=== PATIENT | female | born 1950 | race Caucasian/White ===

== ENCOUNTER → 2024-03-14 09:43 | Outpatient (REF) | payer MEDICARE, OTHER, SELFPAY | LOC: WDC 09:43 | PROVIDERS: ATTENDING PHYSICIAN Obstetrics & Gynecology; FAMILY PHYSICIAN Family Medicine | DX: N63.11 Unspecified lump in the right breast, upper outer quadrant (principal) | CPT/HCPCS: 76642; 77062; 77066 ==

== ENCOUNTER → 2024-03-18 08:25 | Outpatient (REF) | payer MEDICARE, OTHER, SELFPAY | LOC: WDC 08:25 | PROVIDERS: ATTENDING PHYSICIAN Obstetrics & Gynecology | DX: N63.11 Unspecified lump in the right breast, upper outer quadrant (principal) | CPT/HCPCS: 88305; 19083; A4648 ==

== ENCOUNTER → 2024-04-01 09:37 | Outpatient (REF) | payer MEDICARE, OTHER, SELFPAY | LOC: MRI 3T 09:37 | PROVIDERS: ATTENDING PHYSICIAN Surgery; FAMILY PHYSICIAN Family Medicine; OTHER PHYSICIAN Obstetrics & Gynecology | DX: C50.411 Malignant neoplasm of upper-outer quadrant of right female breast (principal); Z17.1 Estrogen receptor negative status [ER-] | CPT/HCPCS: 71260; 74177; 77049; 78306; A9503; A9585; Q9967 ==

== ENCOUNTER → 2024-04-22 08:09 | Outpatient (REF) | payer MEDICARE, OTHER, SELFPAY ==
[2024-04-21 09:22] VITALS: BMI 24.4
[2024-04-22 08:50] VITALS: BP 168/84; BP_SYST 77
[2024-04-22] MEDS: ANCEF 10 IV (09:28)
[2024-04-22 10:32] VITALS: BP 116/84
== END ==
LOC: RADI 08:09
PROVIDERS: ATTENDING PHYSICIAN Internal Medicine Hematology & Oncology; FAMILY PHYSICIAN Family Medicine
DX: C50.411 Malignant neoplasm of upper-outer quadrant of right female breast (principal)
CPT/HCPCS: 36561; 76937; 77001; 99152; 99153; C1788

== ENCOUNTER → 2024-06-08 13:15 | Outpatient (REF) | payer MEDICARE, OTHER, SELFPAY ==
[2024-06-08 13:35] LABS: % Basophils 0.2 % (0-2); % Eosinophils 0.3 % (0-6); % Immature Granulocytes 10.9 % (0-0.5); % Lymphocytes 12.3 % (20.5-51.1); % Monocytes 3.3 % (1.7-9.3); Absolute Immature Granulocytes 1.4 10^3/uL (0-0.05); Absolute Lymphocytes 1.6 10^3/uL (1.2-3.4); Absolute Monocytes 0.4 10^3/uL (0.1-0.6); Absolute Neutrophils 9.3 10^3/uL (1.4-6.5); Hematocrit 31.7 % (37.0-47.0); Hemoglobin 10.8 g/dL (12.0-16.0); Mean Corp Hgb Conc. 34.1 g/dL (33.0-37.0); Mean Corpuscular Hgb 29.6 pg (27.0-31.0); Mean Corpuscular Volume 86.8 fL (81.0-99.0); Mean Platelet Volume 9.8 fL (7.4-10.4); Platelet Count 168 10^3/uL (130-400); Red Blood Cell Count 3.65 10^6/uL (4.20-5.40); Red Cell Dist. Width 14.6 % (11.5-14.5); White Blood Cell Count 12.7 10^3/uL (4.8-10.8)
[2024-06-08 15:35] LABS: ALT (SGPT) 25 U/L (0-35); AST (SGOT) 28 U/L (14-36); Alkaline Phosphatase 72 U/L (38-126); Blood Urea Nitrogen 13 mg/dl (7-17); Calcium 8.9 mg/dl (8.4-10.2); Carbon Dioxide 27 mmol/L (22-30); Chloride 101 mmol/L (98-107); Glucose 106 mg/dl (70-99); Potassium 3.4 mmol/L (3.5-5.1); Sodium 139 mmol/L (135-145); Total Bilirubin 0.7 mg/dl (0.2-1.3); Total Protein 6.2 g/dl (6.3-8.2); eGFR > 60.00
[2024-06-08 16:19] LABS: Free T4 1.35 ng/dl (0.78-2.19)
[2024-06-08 16:33] LABS: TSH 2.36 uIU/ml (0.47-4.68)
[2024-06-10 23:07] LABS: Total T3 (Sendout) 129 ng/dL (80-200)
== END ==
LOC: OIDL 13:15
PROVIDERS: ATTENDING PHYSICIAN Internal Medicine Hematology & Oncology
DX: C50.411 Malignant neoplasm of upper-outer quadrant of right female breast (principal); R53.82 Chronic fatigue, unspecified
CPT/HCPCS: 80053; 84439; 84443; 84480; 85025

== ENCOUNTER → 2024-06-15 12:15 | Outpatient (REF) | payer MEDICARE, OTHER, SELFPAY ==
[2024-06-15 10:06] LABS: % Basophils 1.1 % (0-2); % Immature Granulocytes 1.1 % (0-0.5); % Lymphocytes 77.2 % (20.5-51.1); % Monocytes 3.3 % (1.7-9.3); % Neutrophils 17.3 % (42.2-75.2); Absolute Lymphocytes 0.7 10^3/uL (1.2-3.4); Hematocrit 29.2 % (37.0-47.0); Hemoglobin 9.7 g/dL (12.0-16.0); Mean Corp Hgb Conc. 33.2 g/dL (33.0-37.0); Mean Corpuscular Hgb 29.5 pg (27.0-31.0); Mean Corpuscular Volume 88.8 fL (81.0-99.0); Mean Platelet Volume 10.4 fL (7.4-10.4); Platelet Count 164 10^3/uL (130-400); Red Blood Cell Count 3.29 10^6/uL (4.20-5.40); Red Cell Dist. Width 14.4 % (11.5-14.5)
[2024-06-15 10:07] LABS: White Blood Cell Count 0.9 10^3/uL (4.8-10.8)
[2024-06-15 10:08] LABS: Absolute Neutrophils 0.2 10^3/uL (1.4-6.5)
[2024-06-15 10:43] LABS: ALT (SGPT) 25 U/L (0-35); AST (SGOT) 27 U/L (14-36); Albumin 4.3 g/dl (3.5-5.0); Alkaline Phosphatase 64 U/L (38-126); Blood Urea Nitrogen 12 mg/dl (7-17); Calcium 9.3 mg/dl (8.4-10.2); Carbon Dioxide 28 mmol/L (22-30); Chloride 97 mmol/L (98-107); Glucose 100 mg/dl (70-99); Potassium 3.5 mmol/L (3.5-5.1); Sodium 136 mmol/L (135-145); Total Bilirubin 1.4 mg/dl (0.2-1.3); Total Protein 6.2 g/dl (6.3-8.2); eGFR > 60.00
== END ==
LOC: OIDL 12:15
PROVIDERS: ATTENDING PHYSICIAN Internal Medicine Hematology & Oncology
DX: C50.411 Malignant neoplasm of upper-outer quadrant of right female breast (principal)
CPT/HCPCS: 80053; 85025

== ENCOUNTER → 2024-06-20 14:11 | Outpatient (REF) | payer MEDICARE, OTHER, SELFPAY ==
[2024-06-20 14:21] LABS: % Basophils 0.1 % (0-2); % Eosinophils 0.1 % (0-6); % Immature Granulocytes 8.9 % (0-0.5); % Lymphocytes 17.5 % (20.5-51.1); % Monocytes 14.8 % (1.7-9.3); % Neutrophils 58.6 % (42.2-75.2); Absolute Immature Granulocytes 1.3 10^3/uL (0-0.05); Absolute Lymphocytes 2.5 10^3/uL (1.2-3.4); Absolute Monocytes 2.1 10^3/uL (0.1-0.6); Absolute Neutrophils 8.3 10^3/uL (1.4-6.5); Mean Corp Hgb Conc. 32.3 g/dL (33.0-37.0); Mean Corpuscular Hgb 29.2 pg (27.0-31.0); Mean Corpuscular Volume 90.6 fL (81.0-99.0); Mean Platelet Volume 9.9 fL (7.4-10.4); Platelet Count 269 10^3/uL (130-400); Red Blood Cell Count 3.42 10^6/uL (4.20-5.40); Red Cell Dist. Width 15.7 % (11.5-14.5); White Blood Cell Count 14.1 10^3/uL (4.8-10.8)
== END ==
LOC: OIDL 14:11
PROVIDERS: ATTENDING PHYSICIAN Nurse Practitioner Primary Care
DX: C50.411 Malignant neoplasm of upper-outer quadrant of right female breast (principal)
CPT/HCPCS: 85025

== ENCOUNTER → 2024-06-21 16:08 | Outpatient (REF) | payer MEDICARE, OTHER, SELFPAY ==
[2024-06-21 14:45] LABS: % Basophils 0.2 % (0-2); % Eosinophils 0.1 % (0-6); % Immature Granulocytes 4.8 % (0-0.5); % Lymphocytes 9.2 % (20.5-51.1); % Monocytes 8.9 % (1.7-9.3); % Neutrophils 76.8 % (42.2-75.2); Absolute Basophils 0.1 10^3/uL (0-0.2); Absolute Immature Granulocytes 1.8 10^3/uL (0-0.05); Absolute Lymphocytes 3.5 10^3/uL (1.2-3.4); Absolute Monocytes 3.4 10^3/uL (0.1-0.6); Absolute Neutrophils 29.3 10^3/uL (1.4-6.5); Hemoglobin 10.3 g/dL (12.0-16.0); Mean Corp Hgb Conc. 32.2 g/dL (33.0-37.0); Mean Corpuscular Hgb 29.2 pg (27.0-31.0); Mean Corpuscular Volume 90.7 fL (81.0-99.0); Platelet Count 292 10^3/uL (130-400); Red Blood Cell Count 3.53 10^6/uL (4.20-5.40)
[2024-06-21 14:50] LABS: White Blood Cell Count 38.1 10^3/uL (4.8-10.8)
[2024-06-21 16:07] LABS: ALT (SGPT) 25 U/L (0-35); AST (SGOT) 43 U/L (14-36); Albumin 4.6 g/dl (3.5-5.0); Alkaline Phosphatase 139 U/L (38-126); Blood Urea Nitrogen 5 mg/dl (7-17); Calcium 9.2 mg/dl (8.4-10.2); Carbon Dioxide 28 mmol/L (22-30); Chloride 101 mmol/L (98-107); Glucose 87 mg/dl (70-99); Potassium 3.1 mmol/L (3.5-5.1); Sodium 142 mmol/L (135-145); Total Bilirubin 0.7 mg/dl (0.2-1.3); Total Protein 6.7 g/dl (6.3-8.2); eGFR > 60.00
== END ==
LOC: OIDL 16:08
PROVIDERS: ATTENDING PHYSICIAN Internal Medicine Hematology & Oncology
DX: C50.411 Malignant neoplasm of upper-outer quadrant of right female breast (principal)
CPT/HCPCS: 80053; 85025

== ENCOUNTER → 2024-07-05 16:20 | Outpatient (REF) | payer MEDICARE, OTHER, SELFPAY ==
[2024-07-05 14:29] LABS: % Basophils 0.3 % (0-2); % Eosinophils 0.2 % (0-6); % Immature Granulocytes 8.8 % (0-0.5); % Lymphocytes 18.3 % (20.5-51.1); % Monocytes 1.7 % (1.7-9.3); % Neutrophils 70.7 % (42.2-75.2); Absolute Immature Granulocytes 0.6 10^3/uL (0-0.05); Absolute Lymphocytes 1.2 10^3/uL (1.2-3.4); Absolute Monocytes 0.1 10^3/uL (0.1-0.6); Absolute Neutrophils 4.5 10^3/uL (1.4-6.5); Hematocrit 28.3 % (37.0-47.0); Hemoglobin 9.2 g/dL (12.0-16.0); Mean Corp Hgb Conc. 32.5 g/dL (33.0-37.0); Mean Corpuscular Hgb 29.5 pg (27.0-31.0); Mean Corpuscular Volume 90.7 fL (81.0-99.0); Mean Platelet Volume 10.9 fL (7.4-10.4); Platelet Count 214 10^3/uL (130-400); Red Blood Cell Count 3.12 10^6/uL (4.20-5.40); Red Cell Dist. Width 16.5 % (11.5-14.5); White Blood Cell Count 6.3 10^3/uL (4.8-10.8)
[2024-07-05 16:03] LABS: ALT (SGPT) 21 U/L (0-35); AST (SGOT) 26 U/L (14-36); Albumin 4.3 g/dl (3.5-5.0); Alkaline Phosphatase 93 U/L (38-126); Blood Urea Nitrogen 14 mg/dl (7-17); Calcium 9.5 mg/dl (8.4-10.2); Carbon Dioxide 26 mmol/L (22-30); Chloride 98 mmol/L (98-107); Glucose 116 mg/dl (70-99); Potassium 3.6 mmol/L (3.5-5.1); Sodium 137 mmol/L (135-145); Total Protein 6.2 g/dl (6.3-8.2); eGFR > 60.00
== END ==
LOC: OIDL 16:20
PROVIDERS: ATTENDING PHYSICIAN Internal Medicine Hematology & Oncology
DX: C50.411 Malignant neoplasm of upper-outer quadrant of right female breast (principal)
CPT/HCPCS: 80053; 85025

== ENCOUNTER → 2024-07-12 16:32 | Outpatient (REF) | payer MEDICARE, OTHER, SELFPAY ==
[2024-07-12 15:13] LABS: % Basophils 0.2 % (0-2); % Eosinophils 0.1 % (0-6); % Immature Granulocytes 6.9 % (0-0.5); % Lymphocytes 15.7 % (20.5-51.1); % Monocytes 2.6 % (1.7-9.3); % Neutrophils 74.5 % (42.2-75.2); Absolute Immature Granulocytes 0.7 10^3/uL (0-0.05); Absolute Lymphocytes 1.7 10^3/uL (1.2-3.4); Absolute Monocytes 0.3 10^3/uL (0.1-0.6); Absolute Neutrophils 8.1 10^3/uL (1.4-6.5); Hematocrit 26.2 % (37.0-47.0); Hemoglobin 8.8 g/dL (12.0-16.0); Mean Corp Hgb Conc. 33.6 g/dL (33.0-37.0); Mean Corpuscular Hgb 30.4 pg (27.0-31.0); Mean Corpuscular Volume 90.7 fL (81.0-99.0); Mean Platelet Volume 11.4 fL (7.4-10.4); Platelet Count 250 10^3/uL (130-400); Red Blood Cell Count 2.89 10^6/uL (4.20-5.40); Red Cell Dist. Width 17.4 % (11.5-14.5); White Blood Cell Count 10.8 10^3/uL (4.8-10.8)
[2024-07-12 15:53] LABS: ALT (SGPT) 19 U/L (0-35); AST (SGOT) 27 U/L (14-36); Albumin 4.3 g/dl (3.5-5.0); Alkaline Phosphatase 85 U/L (38-126); Blood Urea Nitrogen 11 mg/dl (7-17); Calcium 9.7 mg/dl (8.4-10.2); Carbon Dioxide 29 mmol/L (22-30); Chloride 96 mmol/L (98-107); Glucose 122 mg/dl (70-99); Potassium 3.2 mmol/L (3.5-5.1); Sodium 136 mmol/L (135-145); Total Bilirubin 1.6 mg/dl (0.2-1.3); Total Protein 6.3 g/dl (6.3-8.2); eGFR > 60.00
== END ==
LOC: OIDL 16:32
PROVIDERS: ATTENDING PHYSICIAN Internal Medicine Hematology & Oncology
DX: C50.411 Malignant neoplasm of upper-outer quadrant of right female breast (principal)
CPT/HCPCS: 80053; 85025

== ENCOUNTER → 2024-07-14 14:50 | Outpatient (REF) | payer MEDICARE, OTHER, SELFPAY ==
[2024-07-14 12:39] LABS: Iron 60 ug/dl (37-170)
[2024-07-14 12:49] LABS: Percent Saturation 19 % (20-50); Total Iron Binding Capacity 301 ug/dl (265-497)
== END ==
LOC: OIDL 14:50
PROVIDERS: ATTENDING PHYSICIAN Internal Medicine Hematology & Oncology
DX: C50.411 Malignant neoplasm of upper-outer quadrant of right female breast (principal)
CPT/HCPCS: 82728; 83540; 83550

== ENCOUNTER → 2024-07-19 14:41 | Outpatient (REF) | payer MEDICARE, OTHER, SELFPAY ==
[2024-07-19 14:47] LABS: % Basophils 0.4 % (0-2); % Eosinophils 0.1 % (0-6); % Immature Granulocytes 6.4 % (0-0.5); % Lymphocytes 20.6 % (20.5-51.1); % Monocytes 2.3 % (1.7-9.3); % Neutrophils 70.2 % (42.2-75.2); Absolute Immature Granulocytes 0.5 10^3/uL (0-0.05); Absolute Lymphocytes 1.4 10^3/uL (1.2-3.4); Absolute Monocytes 0.2 10^3/uL (0.1-0.6); Absolute Neutrophils 4.9 10^3/uL (1.4-6.5); Hematocrit 23.5 % (37.0-47.0); Hemoglobin 7.8 g/dL (12.0-16.0); Mean Corp Hgb Conc. 33.2 g/dL (33.0-37.0); Mean Corpuscular Hgb 30.7 pg (27.0-31.0); Mean Corpuscular Volume 92.5 fL (81.0-99.0); Mean Platelet Volume 10.5 fL (7.4-10.4); Platelet Count 157 10^3/uL (130-400); Red Blood Cell Count 2.54 10^6/uL (4.20-5.40); Red Cell Dist. Width 17.8 % (11.5-14.5)
[2024-07-19 15:54] LABS: ALT (SGPT) 16 U/L (0-35); AST (SGOT) 25 U/L (14-36); Albumin 3.6 g/dl (3.5-5.0); Alkaline Phosphatase 73 U/L (38-126); Blood Urea Nitrogen 6 mg/dl (7-17); Carbon Dioxide 29 mmol/L (22-30); Chloride 98 mmol/L (98-107); Glucose 96 mg/dl (70-99); Sodium 134 mmol/L (135-145); Total Bilirubin 1.9 mg/dl (0.2-1.3); eGFR > 60.00
== END ==
LOC: OIDL 14:41
PROVIDERS: ATTENDING PHYSICIAN Internal Medicine Hematology & Oncology
DX: C50.411 Malignant neoplasm of upper-outer quadrant of right female breast (principal)
CPT/HCPCS: 80053; 85025

== ENCOUNTER 2024-07-21 10:56 | Outpatient (RCR) | payer MEDICARE, OTHER, SELFPAY ==
[2024-07-21 11:27] VITALS: BP 140/65
[2024-07-21] MEDS: TYLENOL 650 MG PO (11:30)
[2024-07-21 11:46] VITALS: BP 125/56
[2024-07-21 14:01] VITALS: BP 126/68
== END 2024-08-08 23:59 | disposition home or self-care (01) ==
LOC: OID 10:56
PROVIDERS: ATTENDING PHYSICIAN Nurse Practitioner Primary Care
DX: C50.411 Malignant neoplasm of upper-outer quadrant of right female breast (principal); Z17.1 Estrogen receptor negative status [ER-]
CPT/HCPCS: 36430; 86850; 86900; 86901; 86920; P9016

== ENCOUNTER → 2024-08-02 14:33 | Outpatient (REF) | payer MEDICARE, OTHER, SELFPAY | LOC: RCS 14:33 | PROVIDERS: ATTENDING PHYSICIAN Nurse Practitioner Primary Care | DX: C50.411 Malignant neoplasm of upper-outer quadrant of right female breast (principal) | CPT/HCPCS: 80053; 85025; 93306; 93356 ==

== ENCOUNTER 2024-08-09 15:06 | Outpatient (RCR) | payer MEDICARE, OTHER, SELFPAY ==
[2024-08-09 14:23] LABS: % Basophils 0.2 % (0-2); % Eosinophils 0.1 % (0-6); % Immature Granulocytes 3.8 % (0-0.5); % Lymphocytes 9.4 % (20.5-51.1); % Monocytes 1.4 % (1.7-9.3); % Neutrophils 85.1 % (42.2-75.2); Absolute Immature Granulocytes 0.7 10^3/uL (0-0.05); Absolute Lymphocytes 1.7 10^3/uL (1.2-3.4); Absolute Monocytes 0.3 10^3/uL (0.1-0.6); Absolute Neutrophils 15.4 10^3/uL (1.4-6.5); Hematocrit 30.2 % (37.0-47.0); Hemoglobin 9.9 g/dL (12.0-16.0); Mean Corp Hgb Conc. 32.8 g/dL (33.0-37.0); Mean Corpuscular Volume 91.5 fL (81.0-99.0); Mean Platelet Volume 11.3 fL (7.4-10.4); Platelet Count 190 10^3/uL (130-400); Red Cell Dist. Width 16.5 % (11.5-14.5); White Blood Cell Count 18.1 10^3/uL (4.8-10.8)
[2024-08-09 15:13] LABS: ALT (SGPT) 21 U/L (0-35); AST (SGOT) 24 U/L (14-36); Albumin 4.1 g/dl (3.5-5.0); Alkaline Phosphatase 99 U/L (38-126); Blood Urea Nitrogen 16 mg/dl (7-17); Calcium 9.2 mg/dl (8.4-10.2); Carbon Dioxide 25 mmol/L (22-30); Chloride 102 mmol/L (98-107); Glucose 111 mg/dl (70-99); Potassium 3.9 mmol/L (3.5-5.1); Sodium 138 mmol/L (135-145); Total Bilirubin 1.5 mg/dl (0.2-1.3); Total Protein 6.3 g/dl (6.3-8.2); eGFR > 60.00
== END 2024-09-07 23:59 | disposition home or self-care (01) ==
LOC: OID 15:06
PROVIDERS: ATTENDING PHYSICIAN Nurse Practitioner Primary Care
DX: C50.411 Malignant neoplasm of upper-outer quadrant of right female breast (principal); Z17.1 Estrogen receptor negative status [ER-]
CPT/HCPCS: 80053; 85025

== ENCOUNTER → 2024-11-24 08:02 | Outpatient (REF) | payer MEDICARE, OTHER, SELFPAY ==
[2024-11-24 16:19] LABS: Hemoglobin 10.2 g/dL (12.0-16.0)
== END ==
LOC: WDC 08:02
PROVIDERS: ATTENDING PHYSICIAN Surgery; FAMILY PHYSICIAN Family Medicine
DX: C50.411 Malignant neoplasm of upper-outer quadrant of right female breast (principal)
CPT/HCPCS: 19285; 36415; 38792; 76942; 85018; A4648; A9541

== ENCOUNTER 2024-11-25 06:27 | Day surgery (SDC) | payer MEDICARE, OTHER, SELFPAY ==
[2024-11-15 14:08] VITALS: BMI 20.7
--- NOTE | 2024-11-17 10:14 | PTCARENOTE ---
Patients 11/15 b 9.5- Palomo @ Dr. Schofield office notified
--- NOTE | 2024-11-17 15:07 | PTCARENOTE ---
Abnormal Hgb 9.5 collected 11/15/24, reviewed by Dr Troy and no further interventions requested.
[2024-11-25] VITALS (9 sets, daily range): BP systolic 93–128; BP diastolic 56–77; BMI 20.7
[2024-11-25] MEDS: TYLENOL 1000 MG PO (10:16)
[2024-11-25] MEDS: NORMOSOL-R/PLASMALYTE-A 1000 IV (10:18)
[2024-11-25] MEDS: LOVENOX 40 MG SC (10:50)
--- NOTE | 2024-11-25 13:15 | W.IMMPOSTOP ---
Surgical Immed Post Op Note
-
Primary Surgeon: Vj
Assisting Surgeon: None
Pre-op Diagnosis: right breast ca
Post-op Diagnosis: same
Procedure Performed: Right localized lumpectomy and sentinel lymph node mapping and biopsy
Anesthesia Type: LMA general
Specimen / Cultures: Sentinal nodes, lumpectomy, margins
Estimated Blood Loss: 10cc
Complications: None
Operative Findings: clip and reflector in specimen
--- NOTE | 2024-11-25 13:17 | OR.RPT ---
Operative Report
Operative Report
Date of surgery: Length 11/25/2024
Surgeon: Vj
Preoperative diagnosis: Right breast carcinoma
Postoperative diagnosis: Right breast carcinoma
Procedure: Right localized lumpectomy, sentinel lymph node mapping and biopsy,
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 She presents for breast conservation surgery. On the day prior to the procedure she presented to the [facility] where a Eladia reflector was placed in the image-detected residual tumor site and technetium radiotracer was injected into the breast parenchyma.
On the day of surgery she presented to the same-day surgical services unit. She verified the procedure and was prepped. DVT and antibiotic prophylaxis were provided. She was taken to the operating room and in the supine position intravenous
sedation was delivered, however, the patient had an extremely reactive airway and is a smoker this was converted to an LMA general anesthesia.
The Right breast and axilla were prepped and draped in the usual sterile fashion. An appropriate timeout was performed by all staff members. All tissues were anesthetized with 1% lidocaine plain. Attention was first turned to the axilla where a
curvilinear incision was made inferior to the hairline overlying the area of highest external gamma count. Prior to that, a milliliter of methylene blue was delivered at the tumor site and external massage was applied for 5 minutes. Dissectitof
background count and there were no visible blue nodes. Hemostasis was verified. Marcaine 0.5% plain was instilled the wound was closed using simple interrupted 3-0 plain on deep intermediate and subcutaneous tissue. Skin was closed with running
subcuticular 4 Monocryl.
Next attention was turned to the lumpectomy. A curvilinear incision was made overlying the area of highest external Eladia signal. Skin flaps were elevated and a wide lumpectomy was performed using the cautery. Time out of body was noted and the
specimen was oriented for the pathologist. There was a strong Eladia signal within it and specimen radiography computer confirmed the presence of clip and reflector within it. Additional margins were harvested from the posterior, medial, superior,
lateral, inferior, and anterior dimensions. These were oriented and sent for permanent analysis. Hemostasis was confirmed in this incision hemoclips were placed in the resection cavity and Marcaine was instilled into the tissues. This wound was
closed in the same manner as the axillary incision.
Surgical glue and sterile compressive dressings were applied. All sponge needle and instrument counts were correct and the patient was transferred to the recovery room in stable condition,
([id number])
[place] Node Bx Breast Cancer
[place] Node Bx Breast Cancer
Operation performed with curative intent: Yes
Tracer(s) to ID [place] Nodes in Non-Neoadjuvant setting: N/A
Tracer(s) to ID Sentinal Nodes in the Neoadjuvant Setting: Dye and Radioactive Tracer
All nodes at end of dye-filled Lymphatic Channel removed: Yes
All Significantly Radioactive Nodes were removed: Yes
All Palpably Suspicious Nodes were Removed: Yes
== END 2024-11-25 15:47 | disposition home or self-care (01) ==
LOC: SDS 06:27
PROVIDERS: ATTENDING PHYSICIAN Surgery
DX: C50.911 Malignant neoplasm of unspecified site of right female breast (principal); N60.21 Fibroadenosis of right breast
CPT/HCPCS: 38525; 19301; 38900; 76098; 88305; 88307; 88342; L8000

== ENCOUNTER 2024-12-28 20:29 | Day surgery (SDC) | payer MEDICARE, OTHER, SELFPAY ==
[2024-12-28 15:22] VITALS: BP 138/78
--- NOTE | 2024-12-28 16:02 | ED.GENMED ---
History of Present Illness
<Jeanie Toro DO, Resident - Last Filed: 12/28/24 22:38>
General
Chief Complaint: Post Operative Problem(s)
Source: patient and significant other
Exam Limitations: none
Time Seen by Provider: 12/28/24 15:36
History of Present Illness
History of Present Illness:
Patient is a 74-year-old female with past medical history of triple negative right breast cancer, presenting with a postsurgical hematoma. Patient was diagnosed with triple negative right breast cancer earlier this year. Patient underwent
neoadjuvant therapy chemotherapy and Keytruda followed by a right lumpectomy on November 25, 2024 with sentinel lymph node biopsy. Patient has 2 surgical incisions. She states that the superior incision has been healing well but that the inferior
incision has not. It has been draining blood and fluid since the surgery over a month ago. It now has an associated hematoma and swelling. Patient denies pain, changes in sensation, numbness or tingling. Patient tried to make an appointment with
her breast surgeon this week, but the breast surgeon is on vacation. They were advised to make an appointment with plastic surgery today, where she saw a nurse practitioner. The nurse practitioner sent patient to the ED requesting a consult with
Dr. Damon from plastics, because there was no plastic surgeon in the office. Patient is now on maintenance Keytruda for 1 year postsurgery, and is waiting to start radiation after her incisions are healed.
Past History
<Jeanie Toro DO, Resident - Last Filed: 12/28/24 22:38>
Past History
ED Past Medical History: Cancer
Review of Systems
<Jeanie Toro DO, Resident - Last Filed: 12/28/24 22:38>
Review of Systems
Allergies reviewed?: Yes
All Other Systems: ROS reviewed and negative except as documented in HPI and ROS
Constitutional: Reports no symptoms
EENT: Reports no symptoms
Respiratory: Reports no symptoms
Cardiac: Reports no symptoms
ABD/GI: Reports diarrhea (Related to Keytruda, managed with loperamide)
: Reports no symptoms
Musculoskeletal: Reports no symptoms
Skin: Reports other (Large hematoma of the right breast associated with nonhealing surgical wound from sentinel lymph node biopsy)
Neurological: Reports no symptoms
Endocrine: Reports no symptoms
Hematologic/Lymphatic: Reports no symptoms
Psychiatric: Reports no symptoms
Phy Exam
<Jeanie Toro DO, Resident - Last Filed: 12/28/24 22:38>
General Physical Exam
General Presentation: well appearing and no apparent distress
General Skin: warm and dry
General Habitus: normal
Cardiovascular Exam
Cardiovascular Exam: regular rate/rhythm
Heart Sounds: normal
Pulmonary Exam
Pulmonary Exam: lungs clear, no respiratory distress, no crackles and no wheezing
Neurological Exam
Neurological Exam: alert and oriented x3
Skin Exam
Skin Exam: other (Right breast large hematoma, open surgical wound, nonhealing.)
Psychiatric Exam
Psychiatric Exam: normal mood/affect
Course
<Jeanie Toro DO, Resident - Last Filed: 12/28/24 22:38>
Orders/Labs/Results
Orders:
Orders
12/28/24 Dinner
Regular
Oral Supplement (If unsure of flavor order apple or vanilla): Ensure Enlive Vanilla
Supplement Frequency: TID
12/28/24 17:09
Complete Blood Count/With Diff Urgent
Comprehensive Metabolic Panel Urgent
PTT Urgent
Prothrombin Time Urgent
12/28/24 17:44
Admit/Transfer Patient As Directed
Co-Sign Provider:
Level of Care: Post Proc/Surg Recovery
Assign to:: Medical/Surgical
Physician / Group: Celia Montoya
Diagnosis: right breast lateral non-healing postoperative wound with hematoma
Reason for Overnight Stay: Other
Other Reason for Overnight Stay: rt breast non-healing postoperative wound with hematoma to go to OR
PRN Pain Medication Management As Directed
May give lesser potent ordered pain med per pt: Yes
preference::
Protocol:: Medication orders for pain may be administered in a
manner that supports deferring to patient preference
when the pt is:
- Requesting an ordered lesser potent pain medication.
Least to most potent pain medications are defined
as: acetaminophen < NSAID < tramadol < opioids
(morphine, oxycodone, hydromorphone).
- Requesting a lesser dose of the same medication IF
ORDERED.
- Requesting a less intrusive route of administration
if both routes are prescribed by the provider (PO <
IV).
12/28/24 17:47
Code Status As Directed
Resuscitation Status: Full Code
12/28/24 20:32
Acetaminophen [Tylenol] 650 mg PO Q4HPRN PRN
Loperamide [Imodium] 2 mg PO Q6HPRN PRN diarrhea
Rosuvastatin Calcium [Crestor] 5 mg PO QPM
12/28/24 20:32
Activity As Directed
Activity Level: Ambulate
Pneumatic Compression Sleeves As Directed
Type: Knee high
Vital Signs As Directed
Frequency: Per unit guidelines
Weight As Directed
Frequency: Once
Comment: on admission
DX Deep Vein Thrombosis Video Routine
12/28/24 21:00
Flush (0.9% Sodium Chloride) [Flush (Nss)] See Dose Instructions IV PER PROTOCOL
12/29/24 Breakfast
NPO
Allow oral meds: Yes
Allow clear liquids: No
Levothyroxine [Synthroid] 50 mcg PO DAILY @ 0600
Abnormal Lab Results
12/28/24
17:09
RBC 3.46 L 10^6/uL
(4.20-5.40)
Hgb 10.0 L g/dL
(12.0-16.0)
Hct 31.3 L %
(37.0-47.0)
MCHC 31.9 L g/dL
(33.0-37.0)
MPV 10.8 H fL
(7.4-10.4)
Carbon Dioxide 31 H mmol/L
(22-30)
12/28/24 17:09
12/28/24 17:09
Vital Signs
Initial and Last Documented VS:
Initial Vital Signs
Temp Pulse Resp BP Pulse Ox
98.2 F 93 16 138/78 99
12/28/24 15:22 12/28/24 15:22 12/28/24 15:22 12/28/24 15:22 12/28/24 15:22
Last Documented Vital Signs
Temp Pulse Resp BP Pulse Ox
98.4 F 103 16 141/89 98
12/28/24 20:34 12/28/24 20:34 12/28/24 20:34 12/28/24 20:34 12/28/24 20:34
Angelalt;Royce Suggs, DO - Last Filed: 12/28/24 17:15>
Orders/Labs/Results
Orders:
Orders
12/28/24 Dinner
Regular
Oral Supplement (If unsure of flavor order apple or vanilla): Ensure Enlive Vanilla
Supplement Frequency: TID
12/28/24 17:09
Complete Blood Count/With Diff Urgent
Comprehensive Metabolic Panel Urgent
PTT Urgent
Prothrombin Time Urgent
12/28/24 17:44
Admit/Transfer Patient As Directed
Co-Sign Provider:
Level of Care: Post Proc/Surg Recovery
Assign to:: Medical/Surgical
Physician / Group: Celia Montoya
Diagnosis: right breast lateral non-healing postoperative wound with hematoma
Reason for Overnight Stay: Other
Other Reason for Overnight Stay: rt breast non-healing postoperative wound with hematoma to go to OR
PRN Pain Medication Management As Directed
May give lesser potent ordered pain med per pt: Yes
preference::
Protocol:: Medication orders for pain may be administered in a
manner that supports deferring to patient preference
when the pt is:
- Requesting an ordered lesser potent pain medication.
Least to most potent pain medications are defined
as: acetaminophen < NSAID < tramadol < opioids
(morphine, oxycodone, hydromorphone).
- Requesting a lesser dose of the same medication IF
ORDERED.
- Requesting a less intrusive route of administration
if both routes are prescribed by the provider (PO <
IV).
12/28/24 17:47
Code Status As Directed
Resuscitation Status: Full Code
12/28/24 20:32
Acetaminophen [Tylenol] 650 mg PO Q4HPRN PRN
Loperamide [Imodium] 2 mg PO Q6HPRN PRN diarrhea
Rosuvastatin Calcium [Crestor] 5 mg PO QPM
12/28/24 20:32
Activity As Directed
Activity Level: Ambulate
Pneumatic Compression Sleeves As Directed
Type: Knee high
Vital Signs As Directed
Frequency: Per unit guidelines
Weight As Directed
Frequency: Once
Comment: on admission
DX Deep Vein Thrombosis Video Routine
12/28/24 21:00
Flush (0.9% Sodium Chloride) [Flush (Nss)] See Dose Instructions IV PER PROTOCOL
12/29/24 Breakfast
NPO
Allow oral meds: Yes
Allow clear liquids: No
Levothyroxine [Synthroid] 50 mcg PO DAILY @ 0600
Abnormal Lab Results
12/28/24
17:09
RBC 3.46 L 10^6/uL
(4.20-5.40)
Hgb 10.0 L g/dL
(12.0-16.0)
Hct 31.3 L %
(37.0-47.0)
MCHC 31.9 L g/dL
(33.0-37.0)
MPV 10.8 H fL
(7.4-10.4)
Carbon Dioxide 31 H mmol/L
(22-30)
12/28/24 17:09
12/28/24 17:09
Vital Signs
Initial and Last Documented VS:
Initial Vital Signs
Temp Pulse Resp BP Pulse Ox
98.2 F 93 16 138/78 99
12/28/24 15:22 12/28/24 15:22 12/28/24 15:22 12/28/24 15:22 12/28/24 15:22
Last Documented Vital Signs
Temp Pulse Resp BP Pulse Ox
98.4 F 103 16 141/89 98
12/28/24 20:34 12/28/24 20:34 12/28/24 20:34 12/28/24 20:34 12/28/24 20:34
<Jeanie Toro DO, Resident - Last Filed: 12/28/24 22:38>
MDM/Problems Addressed
Differential Diagnosis Includes:
post surgical hematoma and poor wound healing
MDM/Problems Addressed:
Discussed case with Dr. Damon. Will order CBC CMP and coags at his request. Patient will be admitted and taken to the OR tomorrow.
<Jeanie Toro DO, Resident - Last Filed: 12/28/24 22:38>
*Pulse Oximetry
SaO2: 99
Oxygen Mode of Delivery: Room air
Patient hypoxic: no
*Critical Care Note
Total Time (30-74mins, 75-104mins- exclusive of procedures): Not Applicable
ED Attending Note
<Jeanie Toro DO, Resident - Last Filed: 12/28/24 22:38>
-
Portions of this chart may have been created with voice recognition software.� Occasional wrong word or��sound alike� substitutions may have occurred due to the inherent limitations of voice recognition software.
<Royce Suggs DO - Last Filed: 12/28/24 17:15>
ED Attending Note
Patient seen and examined by attending physician: Yes
I performed a history and physical exam of patient and discussed management with resident, I reviewed resident's note and agree with documented findings and plan of care.: Yes
ED Attending Note:
I have reviewed and agree with history and treatment plan by Jeanie Toro D.O. My exam revealed
Physical Exam
General: no apparent distress, not acutely ill
Neck: supple. no meningeal signs. normal posterior pharynx
Heart: equal radial pulses.
HEENT: Pupils equal round reactive to light, EOMI
Breast: Examined with resident Jeanie Toro DO. Open wound with hematoma contents seen
Lungs: no acute respiratory distress.
Abdomen: normal bowel sounds. not tender. no CVAT
Neuro: alert and oriented. no focal neurological deficits cranial nerves II through XII intact
Skin: no rash
Psychiatric: well kept. interactive and cooperative
Extremities: no edema. no calf tenderness. negative homans. good distal pulses
74-year-old female with hematoma and open wound of right breast, admit to hospitalist we will consult Dr. Cook, plastic surgeon for washout
Discharge Plan
Departure
Patient Disposition: Admit
Date of Disposition: 12/28/24
Time of Disposition: 16:51
Presentation/result/management discussed w/ accepting MD/DO: Hospitalist
Discharge Problem:
Postoperative wound hematoma
Interventions
Interventions:
*General Assessment Last Done: 12/28/24 16:23
*Neglect/Abuse Screening Last Done: 12/28/24 15:22
*ED- Fall Risk Assessment Last Done: 12/28/24 16:23
*Nursing Disposition Last Done: 12/28/24 20:22
ED-Skin Assessment Last Done: 12/28/24 16:23
Discharge Date and Time
Discharge Date/Time: 12/28/24 20:23
--- NOTE | 2024-12-28 17:03 | HPS.HSE ---
Family Physician
-
Family Physician: Mona Lyons
Chief Complaint
-
recommendation of DIRECTOR CORPORATE COMMUNICATIONS from plastics office
History of Present Illness
Patient is a 74-year-old female with past medical history significant for invasive ductal triple negative carcinoma of right breast, hyperlipidemia and hypothyroid who presented to [facility] ED for evaluation and treatment after recommendation of DIRECTOR CORPORATE COMMUNICATIONS
from plastics office. Patient reports that she had a right breast lumpectomy 11/25/2024with Dr. Zabala, since then she reports that lower incision has not healed and continues to bleed. She saw Dr. Zabala for follow up postop on 12/12/2024 and
incision was still slightly closed with glue, a second follow up was scheduled for 01/04/2025. Do to increased drainage and opening and no glue keeping area approximated she called surgeons office who referred her to call Plastics, Dr. Bryant for
appointment as they are covering for Dr. Zabala this week. She was seen in plastics office today by DIRECTOR CORPORATE COMMUNICATIONS, who referred her to ED for admission. Dr. Bryant plans to take patient to OR tomorrow to remove hematoma, washout and closure.
Medical History
Past Medical History
Past Medical History: Reports Other
Additional Past Medical History:
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
hypothyroid
Past Surgical History: Reports Other
Additional Past Surgical History:
tubal ligation
US guided Right breast biopsy 03/18/24
RIGHT LOCALIZED LUMPECTOMY SLN MAPPING AND BIOPSY POSSIBLE ONCOPLASTIC CLOSURE 11/25/24
Social History
Tobacco: Non-smoker
Alcohol: None
Drug: None
Personal:
Living: With Family
Employment: Retired
Family History
Family History: Other (Mother: breast cancer; Father: colon resection (s/p cancer?))
Allergies / Home Medications
Allergies reflects when Allergies were last updated in [facility].
Home Medications with original date entered in [facility]
Allergy/Medication List:
Allergies
Allergy/AdvReac Type Severity Reaction Status Date / Time
diphenhydramine (From Allergy Mild Unknown Verified 12/28/24 15:22
Benadryl)
Home Medications
levothyroxine 50 mcg tablet (Synthroid) 50 mcg PO DAILY 04/22/24
rosuvastatin 5 mg tablet 5 mg PO QPM 04/22/24
loperamide 2 mg capsule 2 mg PO Q6HPRN PRN diarrhea 11/16/24
Review of Systems
-
History Source: Patient
Constitutional: Reports No Symptoms
EENT: Reports No Symptoms
Respiratory: Reports No Symptoms
Cardiac: Reports No Symptoms
Abdomen/GI: Reports Diarrhea (r/t cancer treatment with Keytruda )
: Reports No Symptoms
Musculoskeletal: Reports No Symptoms
Skin: Reports Other (right breast incision non-healing )
Neurological: Reports No Symptoms
Endocrine: Reports No Symptoms
Hematologic/Lymphatic: Reports No Symptoms
Psych: Reports No Symptoms
Physical Exam
Vital Signs
Vital Signs
Temp Pulse Resp BP Pulse Ox
98.2 F 93 16 138/78 99
12/28/24 15:22 12/28/24 15:22 12/28/24 16:24 12/28/24 15:22 12/28/24 16:08
Physical Exam
General: Well Developed, Well Nourished, No Apparent Distress, Comfortable, Conversant and Appears Chronically Ill
HEENT: NormoCephalic, Moist mucous membranes and Atraumatic
Respiratory: Clear and Non Labored Respirations
Cardiac: S1/S2 and Regular Rhythm; No Murmur, Rub or Gallop
GI: Soft, Non Tender, Non Distended and Normal Bowel Sounds
Rectal: Deferred by Provider
Genito-urinary: Deferred by me
Musculoskeletal: No Clubbing, No Cyanosis and No Edema
Skin: Other (right breast lateral non-healing surgical wound, with visualized hematoma)
Neuro: Awake, AO x 3 and Nonfocal/grossly intact
Hematologic/Lymphatic: No Lymphadenopathy
Psych: Calm and Intact Judgment/Insight
Data Reviewed
-
Lab Data: Labs Reviewed by me
Impression/Plan
-
IMPRESSION/PLAN:
#right breast lateral non-healing postoperative wound with hematoma
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
s/p right localized lumpectomy SLN mapping and biopsy possible oncoplastic closure
follows with Dr. Agee at [facility]
- Admit to med/surg
- Consult Plastics
- NPO at midnight for OR tomorrow
#hypothyroid
- continue levothyroxine
#hyperlipidemia
- continue rosuvastatin
Code status: full code
DVT prophylaxis: SCDs
[2024-12-28 17:11] VITALS: BMI 22.0
[2024-12-28 17:27] LABS: Hematocrit 31.3 % (37.0-47.0); Hemoglobin 10.0 g/dL (12.0-16.0); Mean Corp Hgb Conc. 31.9 g/dL (33.0-37.0); Mean Corpuscular Volume 90.5 fL (81.0-99.0); Nucleated Red Blood Cells % 0 %; Platelet Count 179 10^3/uL (130-400); Red Cell Dist. Width 13.6 % (11.5-14.5)
[2024-12-28 17:33] LABS: INR 0.92; PT 12.9 Sec (11.4-14.6)
[2024-12-28 17:34] LABS: APTT 29.6 Sec (23.4-35.0)
--- NOTE | 2024-12-28 17:35 | W.PN.UPDATE ---
Update Note
Progress Note Update
This is an addendum to H&P written by BARREL[employer] INSPECTOR Haven Mckeon
I saw and examined the patient.
The BARRELHEAD INSPECTOR's note was reviewed and I agree with the note.
Comment:
Ms. Velma Talamantes is a 74 yo woman with hx triple negative right breast cancer, restless leg syndrome, hypothyroidism, HLD, s/p lumpectomy 11/25/24 presents to the ER with poorly healing inferior incision with hematoma and swelling.
Triage VS: T 98.2, P 93, RR 16, BP 138/78, SpO2 99%
On exam patient is in no acute distress. Incision non-healing with hematoma underneath
LABS: WBC 5.1, Hg 10, PLT 179
Non-healing incision post Lumpectomy with associated Hematoma
-seen by Dr. Russ in the ER and plan is for OR tomorrow
-NPO after MN
Hypothyroidism - [employer] Synthroid
Hx Breast Cancer
-s/p lumpectomy, on Keytruda
Remainder of plan per BARRELHEAD INSPECTOR note
[2024-12-28 17:44] LABS: ALT (SGPT) 18 U/L (0-35); AST (SGOT) 26 U/L (14-36); Albumin 4.1 g/dl (3.5-5.0); Alkaline Phosphatase 50 U/L (38-126); Blood Urea Nitrogen 17 mg/dl (7-17); Calcium 9.6 mg/dl (8.4-10.2); Carbon Dioxide 31 mmol/L (22-30); Chloride 102 mmol/L (98-107); Estimated Creatinine Clearance 64 ml/min; Glucose 77 mg/dl (70-99); Potassium 4.0 mmol/L (3.5-5.1); Sodium 137 mmol/L (135-145); Total Protein 6.4 g/dl (6.3-8.2); eGFR > 60.00
[2024-12-28 20:32] VITALS: BMI 20.9
[2024-12-28 20:34] VITALS: BP 141/89
[2024-12-28] MEDS: CRESTOR 5 MG PO (21:17)
[2024-12-28] MEDS: IMODIUM 2 MG PO (21:35)
[2024-12-28 23:03] VITALS: BP 116/70
--- NOTE | 2024-12-28 23:55 | CON.PS ---
Consultation - Plastic Surgery
Consultation Request
Date/Time Consultation Requested: 12/28/24
Date/Time Consultation Performed: 12/28/24 5:30pm
Requesting Provider: ED
Performing Provider: JELENA Russ MD
Reason for Consultation: Right breast hematoma
Medical History
-
Chief Complaint: right breast wound
History of Present Illness:
74yoF h/o breast CA s/p R lumpectomy on keytruda. Postop hematoma and wound dehiscence. Otherwise stable.
Past Medical History
Past Medical History: Cancer
Past Surgical History: Other
Social History
Tobacco: Non-Smoker
Allergies / Home Medications
Allergy/AdvReac Type Severity Reaction Status Date / Time
adhesive tape Allergy Rash Verified 12/28/24 20:53
diphenhydramine (From Allergy 'I could Verified 12/28/24 20:33
Benadryl) not speak
or use my
motor
skills'
�Medication �Instructions �Recorded �Confirmed �Type
levothyroxine 50 mcg tablet 50 mcg PO DAILY 04/22/24 12/28/24 History
(Synthroid)
rosuvastatin 5 mg tablet 5 mg PO QPM 04/22/24 12/28/24 History
loperamide 2 mg capsule 2 mg PO Q6HPRN PRN diarrhea 11/16/24 12/28/24 History
albuterol sulfate 90 mcg/actuation 2 puff inhalation HS 12/28/24 12/28/24 History
aerosol inhaler
albuterol sulfate 90 mcg/actuation 2 inh inhalation PRN PRN sob/wheeze 12/29/24 12/29/24 History
aerosol inhaler
Review of Systems
-
Constitutional: No Symptoms
Skin: Other
Physical Exam
Vital Signs
Temp 98.3 F 12/29/24 07:40
Temp route: Oral 12/29/24 07:40
Pulse 82 12/29/24 07:40
Resp Rate 15 12/29/24 07:40
Blood pressure 125/70 12/29/24 07:40
Blood pressure extremity used: Left upper arm 12/29/24 07:40
Position: Lying 12/29/24 07:40
SaO2 95 12/29/24 07:40
Oxygen Mode of Delivery Room air 12/29/24 07:40
Acceptable pain level during hospitalization? 0 12/28/24 15:22
Can the patient verbally communicate their pain? Yes 12/29/24 09:51
Pain scale ratin 12/29/24 09:51
Actual Weight 108 lb 9 oz 12/28/24 20:32
Body Mass Index (BMI) 20.9 12/28/24 20:32
PEX:
NAD
No increased WOB
Left breast normal
Right breast with large hematoma, open wound and foul odor
Lab Results
12/28/24 17:09
12/28/24 17:09
Assessment / Plan
-
Right breast hematoma washout, complex closure, drain placement
Will obtain cultures
OK to DC on generic po abx and await speciation
Drain and incision management in 1-2 weeks outpatient
Data Reviewed
-
Labs: Labs Reviewed by me
[2024-12-29] VITALS (11 sets, daily range): BP systolic 0–128; BP diastolic 25–95
[2024-12-29] MEDS: SYNTHROID 50 MCG PO (05:42)
--- NOTE | 2024-12-29 09:49 | CM ---
CM reviewed medical records. Patient denied history of VN, SNF or DME. Patient is active with her PCP. Patient has medication coverage.
CM discussed post operative drain. Patient declined home care.
PLAN: home, declined home care for drain care.
[2024-12-29] MEDS: TYLENOL 650 MG PO (09:51)
[2024-12-29] MEDS: IMODIUM 2 MG PO (09:55)
--- NOTE | 2024-12-29 10:53 | VATNOTE ---
Primary RN called to have pts. port accessed. Pt. stated she may go home today after her procedure or be discharged tomorrow. Pt. has a peripheral IV. Pt. choose not to have port accessed at this time.
--- NOTE | 2024-12-29 11:44 | W.SUR.PREOP ---
Pre-Operative Surgical Note
-
I have examined this patient prior to the performance of the scheduled procedure.
The patient's condition is unchanged from the time of the current History and
Physical and the patient is able to undergo the scheduled procedure.
--- NOTE | 2024-12-29 12:40 | W.IMMPOSTOP ---
Surgical Immed Post Op Note
-
Primary Surgeon: JELENA Russ MD
Assisting Surgeon:
Pre-op Diagnosis: Right breast hematoma, dehiscence
Post-op Diagnosis: Same
Procedure Performed: Incision and drainage of hematoma, delayed primary closure
Anesthesia Type: GA
Specimen / Cultures: Fluid for culture, hematoma for tissue culture
Estimated Blood Loss: 15cc
Complications: None
Operative Findings: As expected, evacuated large clot, no ongoing bleeding
--- NOTE | 2024-12-29 12:43 | W.PN.UPDATE ---
Update Note
Progress Note Update
Plastic Surgery Note
Went to OR for washout and delayed primary closure. Went well. No ongoing bleeding.
Cultures sent
Recommend generic PO abx and refinement with culture data outpatient
f/u 1-2 weeks with Thuan
--- NOTE | 2024-12-29 12:45 | OR.RPT ---
Operative Report
Operative Report
Date of surgery: 12/29/2024
Surgeon: JELENA Russ MD
Preoperative diagnosis: Right breast hematoma, status post lumpectomy, status post right breast cancer
Postoperative diagnosis: Same
Procedure:
1. Incision and drainage of right breast hematoma
2. Delayed primary closure right lateral breast incision 15 cm
Anesthesia: General
Complications: None
EBL: 15 cc
Cysts cultures: Right breast fluid, hematoma for tissue culture
Indication for procedure: Patient is a 74-year-old female who approximately 1 month ago underwent a right breast lumpectomy. She developed some wound healing complications and slow progressive swelling of the right breast. This resulted in an open
wound dehiscence and visible clot in the right breast. She presented to the office and was referred back to the ED for operative intervention. Plan was made for incision and drainage and delayed primary closure over drain. We would send cultures
and direct antibiotic therapy accordingly. She understood the risk the procedure and desire to proceed. Consented accordingly.
Procedure in detail: Patient was identified preoperatively and the surgical site was confirmed to the right breast. All questions were answered and consents were confirmed. Patient was taken back to the operating room placed supine on the table.
Anesthesia was induced and patient was prepped and draped in usual sterile fashion using Betadine solution. An incision was made over the dehisced wound of the right lateral breast. A large amount approximately 150 to 200 cc of clot was removed.
3 L of normal saline was used to irrigate the wound thereafter. There was no ongoing arterial bleeding identified. A large bore Greg drain was placed and tunneled in the subcutaneous space sutured in place with a 2-0 Vicryl. Marcaine block was
performed with quarter percent Marcaine. Delayed primary closure occurred in the form of 2-0 Vicryl's in the deep layer followed by 3 oh nylons in the skin. Patient tolerated procedure well and was performed out complication. Cultures were sent
of the hematoma itself as well as the fluid. She was extubated taken the PACU further care.
--- NOTE | 2024-12-29 14:18 | W.DCSUMMARY ---
Discharge Summary
Discharge Data
Date of Admission: 12/28/24
Date of Discharge: 12/29/24
-
Pending Results: Yes (OR culture)
Hospital Course
Attending physician on day of discharge:
Xiao Duong MD
Admission diagnosis:
Right breast nonhealing postoperative wound
Discharge diagnosis:
Right breast hematoma
Secondary diagnoses:
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
Hypothyroidism
Hyperlipidemia
Consultations:
Plastic surgery Dr. Russ
Procedures:
1. Incision and drainage of right breast hematoma
2. Delayed primary closure right lateral breast incision 15 cm
Hospital course:
74F with breast cancer s/p recent right lumpectomy was admitted with postoperative hematoma and wound dehiscence. She was taken to operating room 12/29/2024 for washout and drain. She was discharged with course of cefadroxil and outpatient
follow-up with plastic surgery.
Physical exam on discharge:
Gen: NAD
HEENT: PERRLA, EOMI, MMM, neck supple
Cards: RRR, no M/G/R
Resp: Lungs CTAB, no W/R/R
GI: soft, NT/ND/NABS
MSK: No edema
Skin: + R breast swelling/induration, wound covered in gauze
Heme: No LAD
Psych: Calm
Neuro: AAOx3
Discharge disposition:
Home
Discharge Plan
-
Patient Disposition: Home (Routine Discharge)
Discharge Diagnosis/Procedures: Hematoma
Diet: No restrictions
Activity: No restrictions
Bathing Restrictions: keep dressing clean dry and intact
Referrals:
Mona Lyons MD [Family Provider, Family Practice]
Nehemias Russ MD [Active, Plastic Surgery] - in two weeks
Prescriptions:
New
cefadroxil 500 mg capsule
500 mg PO BID 7 Days Qty: 14 0RF
Continued
levothyroxine [Synthroid] 50 mcg Tablet
50 mcg PO DAILY
rosuvastatin 5 mg Tablet
5 mg PO QPM
loperamide 2 mg Capsule
2 mg PO Q6HPRN PRN (Reason: diarrhea)
albuterol sulfate 90 mcg/actuation Hfa Aerosol Inhaler
2 puff INHALATION HS
albuterol sulfate 90 mcg/actuation Hfa Aerosol Inhaler
2 inh INHALATION PRN PRN (Reason: sob/wheeze)
Discharge Orders:
Discharge Patient (As Directed); Ordered 12/29/24
Ordered By: Xiao Duong
Discharge Date and Time
Print Language: UKRAINIAN
--- NOTE | 2024-12-29 14:30 | PTCARENOTE ---
Received patient from PACU at 1425. Patient AAOx3, minimal c/o pain. Right breast dressing CDI, Russ draining bloody drainage. Call azul in reach. Patient ordering lunch now.
--- NOTE | 2024-12-29 17:24 | PTCARENOTE ---
Patient OOb with a steady gait. Patient refusing to eat food, due to appetite. Patient did finish an Ensure. Patient has minimal c/o pain, denies need for pain med. DOLORES drain stripping and emptying reviewed with patient ans spouse.
[2024-12-29] MEDS: CRESTOR 5 MG PO (17:38)
== END 2024-12-29 18:40 | disposition home or self-care (01) ==
LOC: SDS 20:29
PROVIDERS: ATTENDING PHYSICIAN Internal Medicine; EMERGENCY PHYSICIAN Emergency Medicine; FAMILY PHYSICIAN Family Medicine
DX: T81.89XA Other complications of procedures, not elsewhere classified, initial encounter (principal); N64.89 Other specified disorders of breast; L76.32 Postprocedural hematoma of skin and subcutaneous tissue following other procedure; Y83.8 Other surgical procedures as the cause of abnormal reaction of the patient, or of later complication, without mention of misadventure at the time of the procedure; Z85.3 Personal history of malignant neoplasm of breast
CPT/HCPCS: 10140; 13160; 80053; 85025; 85610; 85730; 87070; 87075; 87076; 87077; 87147; 87205; 88304; 99285